=== PATIENT | male | born 2000 | race Two or more races ===

== ENCOUNTER 2022-11-01 18:05 | Emergency (ER) | payer OTHER ==
[~2022-11-01] VITALS: Ht 182.9 cm; Wt 129.3 kg
== END 2022-11-01 18:54 | disposition home or self-care (01) ==
LOC: ER 18:05
DX: I10 Essential (primary) hypertension (principal); Z88.0 Allergy status to penicillin

== ENCOUNTER 2023-03-20 06:09 | Emergency (ER) | payer OTHER ==
[~2023-03-20] VITALS: Ht 182.9 cm; Wt 127.0 kg
[2023-03-20] MEDS ORDERED: SINGULAIR4 MG PO (06:30)
== END 2023-03-20 08:44 | disposition home or self-care (01) ==
LOC: ER 06:09
DX: K30 Functional dyspepsia (principal); Z88.0 Allergy status to penicillin

== ENCOUNTER 2023-06-05 06:11 | Emergency (ER) | payer OTHER ==
[~2023-06-05] VITALS: Ht 182.9 cm; Wt 127.0 kg
[~2023-06-05 06:11] MED LIST: SINGULAIR4 MG PO
== END 2023-06-05 11:05 | disposition home or self-care (01) ==
LOC: ER 06:12
DX: M54.2 Cervicalgia (principal); M62.830 Muscle spasm of back; Z88.0 Allergy status to penicillin